=== PATIENT | female | born 1990 | race Caucasian/White ===

== ENCOUNTER 2018-10-26 00:41 | Emergency (ER) | payer MEDICAID ==
[~2018-10-26] VITALS: Ht 162.6 cm; Wt 68.2 kg
[2018-10-26 00:47] VITALS: Ht 162.6 cm; Wt 68.2 kg
[2018-10-26] MEDS ORDERED: ANXIETY MEDS (00:48)
[2018-10-26] MEDS ORDERED: [UNRECOGNIZED DRUG - REMARK] (00:49)
[2018-10-26 01:09] LABS: APPEARANCE CLEAR (CLEAR); BILIRUBIN NEGATIVE (NEGATIVE); COLOR YELLOW (YELLOW); GLUCOSE NEGATIVE (NEGATIVE); KETONE NEGATIVE (NEGATIVE); NITRITE NEGATIVE (NEGATIVE); PROTEIN NEGATIVE (NEGATIVE); SPECIFIC GRAVITY 1.015 (1.005-1.020); UROBILINOGEN NORMAL (NORMAL)
[2018-10-26 01:14] LABS: BASOPHILS 0.3 % (0-2); EOSINOPHILS 3.8 % (0-7); HEMATOCRIT 36.5 % (36.0-48.0); HEMOGLOBIN 12.7 g/dL (12-16); IMMATURE GRANULOCYTES 0.2 % (0-5); MCHC 34.8 g/dL (31.0-37.0); MCV 86.3 fL (80.0-100.0); MEAN PLATELET VOLUME 10.3 fL (7.4-10.4); MONOCYTES 10.9 % (2-11); NEUTROPHILS 35.8 % (40-80); PLATELET COUNT 208 10x3/uL (130-400); RBC 4.23 10x6/uL (4.00-5.40); RDW 13.1 % (11.5-14.5); WBC 5.8 10x3/uL (4.8-10.8)
[2018-10-26 01:16] LABS: UDS - AMPHET POSITIVE QUAL (NEGATIVE); UDS - BARB NEGATIVE QUAL (NEGATIVE); UDS - BENZO NEGATIVE QUAL (NEGATIVE); UDS - COCAINE NEGATIVE QUAL (NEGATIVE); UDS - OPIATE NEGATIVE QUAL (NEGATIVE); UDS - PCP NEGATIVE QUAL (NEGATIVE); UDS - THC POSITIVE QUAL (NEGATIVE)
[2018-10-26 01:26] LABS: APTT 25.7 SECONDS (22.8-39.4); INR 0.98 (0.85-1.17); PROTIME 12.5 SECONDS (11.6-15.0)
[2018-10-26 01:36] LABS: ALBUMIN 3.7 g/dL (3.4-5.0); ALKALINE PHOSPHATASE 33 U/L (46-116); ALT (SGPT) 82 U/L (10-68); BILIRUBIN - TOTAL 0.24 mg/dL (0.2-1.3); CALC OSMOLALITY 277 mosm/kg (275-300); CALCIUM 8.8 mg/dL (8.5-10.1); CARBON DIOXIDE 25.1 mmol/L (21.0-32.0); CHLORIDE - SERUM 104 mmol/L (98-107); CKMB 1.6 U/L (0.0-3.6); CREATINE KINASE 518 UL (21-215); CREATININE - SERUM 0.9 mg/dL (0.6-1.3); GLUCOSE 119 mg/dL (74-106); MAGNESIUM - SERUM 2.5 mg/dL (1.8-2.4); PROTEIN - SERUM 7.7 g/dL (6.4-8.2); SODIUM 139 mmol/L (136-145); THYROID STIMULATING HORMONE 0.47 uIU/mL (0.36-3.74); TROPONIN-I < 0.017 ng/mL (0.000-0.060); UREA NITROGEN 10 mg/dL (7-18); eGFR NON AFRICAN AMERICAN 78 mL/min (90-120)
[2018-10-26 01:49] LABS: HCG URINE NEGATIVE (NEGATIVE)
[2018-10-26 01:59] LABS: AMYLASE - SERUM 35 U/L (25-115); LIPASE 159 U/L (73-393)
[2018-10-26 07:58] VITALS: BP 112/68
== END 2018-10-26 08:00 | disposition home or self-care (01) ==
LOC: D.ER 00:41
PROVIDERS: Family Medicine
DX: F10.129 Alcohol abuse with intoxication, unspecified (principal); R74.8 Abnormal levels of other serum enzymes; E87.6 Hypokalemia; F15.90 Other stimulant use, unspecified, uncomplicated; F12.90 Cannabis use, unspecified, uncomplicated

== ENCOUNTER → 2020-03-19 12:59 | Outpatient (CLI) | payer MEDICAID ==
[2018-10-26 00:47] VITALS: BMI 25.8
[~2020-03-19 12:59] MED LIST: ANXIETY MEDS; [UNRECOGNIZED DRUG - REMARK]
== END | disposition home or self-care (01) ==
LOC: D.MRI 12:59
PROVIDERS: ATTEND Clinical Nurse Specialist Family Health
DX: S42.032K Displaced fracture of lateral end of left clavicle, subsequent encounter for fracture with nonunion (principal)

== ENCOUNTER 2020-03-26 06:32 | Day surgery (SDC) | payer MEDICAID ==
[~2020-03-26] VITALS: Ht 160 cm; Wt 64.9 kg
[~2020-03-26 06:32] MED LIST changes: +KLONOPIN0.5 MG PO; +LISINOPRIL10 MG PO
[2020-03-26 07:18] LABS: HEMATOCRIT 35.4 % (36.0-48.0); HEMOGLOBIN 11.6 g/dL (12-16); MCH 29.3 pg (26.0-34.0); MCHC 32.8 g/dL (31.0-37.0); MCV 89.4 fL (80.0-100.0); MEAN PLATELET VOLUME 10.9 fL (7.4-10.4); RBC 3.96 10x6/uL (4.00-5.40); WBC 5.9 10x3/uL (4.8-10.8)
[2020-03-26 07:28] LABS: HCG SERUM NEGATIVE (NEGATIVE)
[2020-03-26 08:24] VITALS: BP 131/86; Ht 160 cm; Wt 64.9 kg
--- NOTE | 2020-03-26 12:05 | NUR ---
CYNDEEXUN RATED PAIN AT 5 OFFERED SMALL DOSE OF DILAUDED TO GIVE RELIEF. STATED SHE FEELS SICK WITH NARCOTICS. PROVIDED SCOPALMINE PATCH WITH NARCOTIC TO DECREASE SICKNESS. ZEHRAN TOLERATING DILAUDED WELL AT THIS TIME. NO S/S OF N/V.
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
== END 2020-03-26 13:35 | disposition home or self-care (01) ==
LOC: D.OPS 06:32 → D.PAN 15:40 → D.OPS 16:30 → D.PAN 16:30
PROVIDERS: ATTEND Orthopaedic Surgery
DX: S42.032A Displaced fracture of lateral end of left clavicle, initial encounter for closed fracture (principal); X58.XXXA Exposure to other specified factors, initial encounter

== ENCOUNTER → 2020-09-25 12:15 | Outpatient (CLI) | payer MEDICAID ==
[2020-03-26 08:24] VITALS: BMI 25.3
== END | disposition home or self-care (01) ==
LOC: D.LABREF 12:15
PROVIDERS: ATTEND Orthopaedic Surgery
DX: S52.501A Unspecified fracture of the lower end of right radius, initial encounter for closed fracture (principal)

== ENCOUNTER 2020-10-01 11:40 | Day surgery (SDC) | payer MEDICAID ==
[2020-09-25 12:32] LABS: HEMATOCRIT 39.3 % (36.0-48.0); HEMOGLOBIN 12.4 g/dL (12-16); MCH 27.1 pg (26.0-34.0); MCHC 31.6 g/dL (31.0-37.0); MCV 85.8 fL (80.0-100.0); MEAN PLATELET VOLUME 10.5 fL (7.4-10.4); RBC 4.58 10x6/uL (4.00-5.40); RDW 14.3 % (11.5-14.5); WBC 6.5 10x3/uL (4.8-10.8)
[~2020-10-01] VITALS: Ht 160 cm; Wt 56.8 kg
[~2020-10-01 11:40] MED LIST changes: +MULTI-DAY VITAM1 TAB PO; +NEURONTIN600 MG PO; +ZOLOFT25 MG PO
[2020-10-01 11:42] LABS: HEMATOCRIT 36.8 % (36.0-48.0); MCH 27.1 pg (26.0-34.0); MCHC 32.6 g/dL (31.0-37.0); MCV 83.1 fL (80.0-100.0); MEAN PLATELET VOLUME 10.4 fL (7.4-10.4); RBC 4.43 10x6/uL (4.00-5.40); RDW 14.9 % (11.5-14.5); WBC 5.8 10x3/uL (4.8-10.8)
[2020-10-01 11:51] LABS: HCG SERUM NEGATIVE (NEGATIVE)
[2020-10-01 13:01] VITALS: BP 113/74; Ht 160 cm; Wt 56.8 kg
--- NOTE | 2020-10-01 17:00 | NUR ---
DC INSTRUCTIONS GIVEN TO PT. STATES UNDERSTANDING. DC'D IV CATH FULLY INTACT.
--- NOTE | 2020-10-01 17:25 | NUR ---
PT LEFT UNIT VIA WC AT 1724
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
== END 2020-10-01 17:24 | disposition home or self-care (01) ==
LOC: D.OPS 11:40
PROVIDERS: Anesthesiology; ATTEND Orthopaedic Surgery
DX: M25.531 Pain in right wrist (principal); T84.84XA Pain due to internal orthopedic prosthetic devices, implants and grafts, initial encounter; Z47.2 Encounter for removal of internal fixation device

== ENCOUNTER → 2020-10-27 14:43 | Outpatient (CLI) | payer MEDICAID ==
[2020-10-01 13:01] VITALS: BMI 22.1
== END | disposition home or self-care (01) ==
LOC: D.MRI 14:30
PROVIDERS: ATTEND Orthopaedic Surgery
DX: S83.411A Sprain of medial collateral ligament of right knee, initial encounter (principal)